=== PATIENT | female | born 1945 | race Caucasian/White ===

== ENCOUNTER → 2018-03-09 | Outpatient (CLI) | payer MEDICARE ==
[~2018-03-09] MED LIST: ADULT LOW DOSE81 MG PO; ASPIR 8181 MG PO; CIPRO500 MG PO; FISH OIL 1,001000 M2; FLAGYL500 MG PO; GLUCOPHAGE XR500 MG PO; HYDROCHLOROTH12.5 M1 PO; HYDROCHLOROTH12.5 M2 PO; LISINOPRIL20 MG PO; MUCINEX DM ER1 EACH PO; OMEGA-31000 M1 PO; OMEPRAZOLE20 M2 PO; PAXIL 20 MG TAB20 M1 PO; PAXIL 20 MG TAB20 MG PO; PRINIVIL40 MG PO; TOPROL XL50 MG PO; VITAMIN E400 UNIT PO; ZESTRIL40 MG PO
== END ==
LOC: M.ULTRA 08:38
DX: K80.20 Calculus of gallbladder without cholecystitis without obstruction (principal); K76.0 Fatty (change of) liver, not elsewhere classified; R14.0 Abdominal distension (gaseous)

== ENCOUNTER → 2018-06-30 | Day surgery (SDC) | payer MEDICARE ==
[~2018-06-30] MED LIST changes: +GLUCOTROL5 MG PO; +HYDROCHLOROTHIA25 M2 PO; +LIPITOR10 MG PO; +ULTRAM 50MG TAB50 MG PO
[2018-06-30 06:30] LABS: HEMATOCRIT 38.1 % (37.0-47.0); HEMOGLOBIN 12.5 gm/dL (12.0-15.0); MCH 28.4 pg (26.0-34.0); MCV 86.2 fL (80.0-100.0); MPV 6.8 fl. (7.2-11.1); RBC 4.42 mil/uL (4.20-5.00); RDW-CV 13.8 % (10.5-14.5); WBC 7.7 thou/uL (4.0-11.0)
[2018-06-30 06:45] LABS: ALBUMIN 3.3 g/dL (3.4-5.0); CALCIUM 8.5 mg/dL (8.5-10.1); POTASSIUM 3.7 mmol/L (3.5-5.1); TOTAL BILIRUBIN 0.4 mg/dL (<0.1-1.0)
--- NOTE | 2018-06-30 12:57 | EKG ---
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: : 1945 Requested By: Goyo Jones Order Number: [id number] Reading MD: Hamlet Wild Measurements Intervals [place] Rate: 67 P: 32 ND: 174 QRS: 5 QRSD: 97 T: 59 QT: 416 QTc: 439 Interpretive Statements Sinus rhythm Low voltage, precordial leads Nonspecific T abnormalities, anterior leads Compared to ECG 04/12/2016 13:18:38 Low QRS voltage now present T-wave abnormality still present Electronically Signed On 06-30-2018 12:57:44 ELECTRIC ARC FURNACE OPERATOR by Hamlet Wild [email or web address] <ELECTRONICALLY SIGNED> By: Hamlet Wild MD, [facility] 06/30/18 1257 0745 0745 Hamlet Wild MD, [facility] /EPI
--- NOTE | 2018-07-02 13:09 | PATH ---
[address] [address] PATHOLOGY RPT PROCEDURE Name: SOBIA ARCHER Room: [facility].R.#: [id number] Admission: 06/30/18 Date of : 49 Discharge: Report #: [id number] Path Case #: [id number] [facility] Accession Number: [id number] . 01 Material submitted: . GALLBLADDER . 01 Clinical history: . Symptomatic cholelithiasis . 02 Diagnosis: Gallbladder: - Chronic cholecystitis, cholesterolosis and cholelithiasis. (DELORES:sincere; 07/02/2018) QMS/07/02/2018 . 02 Electronically signed: . Oscar Everett MD, Pathologist NPI- [id number] . 01 Gross description: . The specimen is received in formalin, labeled "Sobia Archer, gallbladder", is a previously disrupted gallbladder measuring 6.4 x 2.7 x 2.0 cm with partially glistening, green-yellow serosa. The cystic duct region is a disrupted, therefore discrete cystic duct cannot be identified. There is an oval irregular surfaced dark brown-black calculus measuring 2.5 x 2.2 x 1.0 cm, within the fundus. The mucosa is streeter-brown and effaced towards the fundus and the wall has an average thickness of 0.1 cm. No discrete masses are identified. Scientific Photographer tissue is submitted in A1. (SWS; 06/30/2018) SHS/ . 02 Pathologist provided ICD-10: K80.10, K82.4 . 02 CPT . 434286 Specimen Comment: A courtesy copy of this report has been sent to Specimen Comment: [phone], . Specimen Comment: Report sent to / DR GARRETT Performed at: [address], [place], [place] [id number] MD Polo Prasad MD Phone: [phone] Performed at: 02 [facility] [address] [place], [place] [id number] [address] [address] PATHOLOGY RPT PROCEDURE Name: SOBIA ARCHER Room: [facility]#: [id number] Admission: 06/30/18 Date of : 49 Discharge: Report #: [id number] Path Case #: [id number] MD Oscar Everett MD Phone: [phone]
--- NOTE | 2018-07-09 00:52 | OP ---
[address] [address] OPERATIVE REPORT Name: PRIMO ARCHER Room: [facility]#: [id number] Admission: 06/30/18 Attend Phys: Goyo Jones DO Discharge: Date of : 49 Report #: [id number] THIS REPORT FOR: //name// CC: Goyo Agee DATE OF SERVICE: 06/30/2018 REFERRING PHYSICIAN: Emilee Agee MD PREOPERATIVE DIAGNOSIS: Symptomatic cholelithiasis. POSTOPERATIVE DIAGNOSES: Symptomatic cholelithiasis plus intra-abdominal adhesions. PROCEDURE: Da Angelia robotic-assisted laparoscopic multiport cholecystectomy and lysis of adhesions lasting greater than 1 hour. SURGEON: Goyo Jones DO CHILD DAYCARE WORKER: Tj Rausch DO, PGY3, resident. SECOND AVIATION PROGRAM MANAGER: Betty Jenkins DO, PGY1, resident. ANESTHESIA: General endotracheal. ESTIMATED BLOOD LOSS: Less than 30 mL. COMPLICATIONS: None. DESCRIPTION OF PROCEDURE: After obtaining proper consents and discussing risks and complications with the patient, she was taken to the operating room, laid on the supine position, administered general anesthesia. She was then prepped and draped in the usual fashion. A timeout was performed. We confirmed the appropriate patient and procedure. Preoperative antibiotics were given. Once the patient was prepped and draped, a supraumbilical skin incision with #11 scalpel blade was carried down through the skin and subcutaneous tissue using electrocautery for hemostasis. Once the fascia was encountered, it was incised along the midline, grasped and elevated with Carissa clamps. The peritoneum was then bluntly opened using a hemostat. A finger was placed inside the peritoneal cavity and there did appear to be some josiah-incisional adhesions; however, it felt like we could place the trocar intraperitoneally without any difficulty. I then placed the blunt trocar and inserted the camera after insufflation was begun. It appeared that the trocar was underneath some adhesions and we were actually looking at the undersurface of the omentum [place] [address] OPERATIVE REPORT Name: PRIMO ARCHER Room: [facility].#: [id number] Admission: 06/30/18 Attend Phys: Goyo Jones DO Discharge: Date of : 49 Report #: [id number] numerous different attempts of placement of the supraumbilical trocar, we were finally able to get over to the right side and over top of the omentum and then we were able to visualize the gallbladder and liver. There did appear to be some adhesions along the midline and left upper quadrant. We elected to place 2 more trocars in the right upper quadrant and then inserted the camera through one of the far lateral right ports and then used electrocautery and blunt dissection to take down the adhesions along the midline and left upper quadrant to allow us to place a fourth trocar in the left upper quadrant to proceed with the Da Angelia robotic cholecystectomy. This dissection of adhesions took approximately 1 hour. Once this was done, we were able to finally place the fourth trocar in the left upper quadrant and then we docked the da Angelia robot. Once the da Angelia robot was docked, we inserted a hook cautery in the left upper quadrant and 2 Cadiere graspers in the right upper quadrant. I then broke scrub and went on console. Once on the console, I was able to elevate the gallbladder and identify Erica pouch which was also grasped and elevated. The hepatoduodenal ligament was then stripped down and we used Firefly technology and immunofluorescence to identify the cystic duct. I could visualize the cystic duct coursing directly into the gallbladder. I also could identify the cystic artery and obtained a critical view of safety. Once the critical view of safety was obtained, I then dissected the cystic duct and cystic artery free as they coursed directly into the gallbladder. They were then clipped proximally and distally and then divided between clips. The gallbladder was then removed from the liver bed using electrocautery. We did copiously irrigate the area afterwards and assured hemostasis in the liver bed and also used Firefly again to assure there was no biliary leak. Once this was done, I then elevated the gallbladder. My sales assistants and salespersons undocked the third arm of the da Angelia robot and grasped the gallbladder using an alligator grasper. I then rescrubbed and went back to the patient's bedside. The da Angelia robot was undocked. The camera was moved to port #2 in the right upper quadrant and an Endopouch was placed through the supraumbilical incision. The gallbladder was placed into an Endopouch. The insufflation was then stopped. All air was released. Trocars were removed under direct vision. The gallbladder was removed through the supraumbilical incision in the Endopouch. We then closed the umbilical fascia using the 2 previously placed 0 Vicryl sutures plus 2 additional 0 Vicryl sutures. Skin incisions were all injected with 0.5% Marcaine without epinephrine and closed using 4-0 Monocryl subcuticular stitches. Mastisol, Steri-Strips, sterile OpSite and pressure dressings were placed. The patient tolerated the procedure well, was transported to recovery room in stable condition. <ELECTRONICALLY SIGNED> By: Goyo Jones DO 07/09/18 0052 [id number] 1158Alata Jones DO /kinsey
== END | disposition home or self-care (01) ==
LOC: M.SUR 06-22 06:30
PROVIDERS: Surgery
DX: K80.10 Calculus of gallbladder with chronic cholecystitis without obstruction (principal); K66.0 Peritoneal adhesions (postprocedural) (postinfection); Z79.82 Long term (current) use of aspirin; Z79.899 Other long term (current) drug therapy; Z98.890 Other specified postprocedural states; Z88.8 Allergy status to other drugs, medicaments and biological substances

== ENCOUNTER → 2018-10-06 | Outpatient (CLI) | payer MEDICARE | LOC: M.RAD 11:49 | DX: S29.019A Strain of muscle and tendon of unspecified wall of thorax, initial encounter (principal); M25.78 Osteophyte, vertebrae; X58.XXXA Exposure to other specified factors, initial encounter; Y93.89 Activity, other specified; Y92.89 Other specified places as the place of occurrence of the external cause; Y99.8 Other external cause status ==

== ENCOUNTER 2019-04-30 11:03 | Observation (INO) | payer MEDICARE ==
[~2019-04-30] VITALS: Ht 165.1 cm; Wt 98.9 kg
[2019-04-30 11:04] VITALS: BP 144/100
[2019-04-30] MEDS ORDERED: FISH OIL 1,0001 EAC9 PO (11:28)
[2019-04-30] MEDS ORDERED: CELEBREX50 MG PO (11:28)
[2019-04-30 14:53] LABS: ABSOLUTE BASOPHILS 0.1 thou/uL (0.0-0.2); ABSOLUTE EOSINOPHILS 0.1 thou/uL (0.0-0.7); ABSOLUTE LYMPHOCYTES 1.3 thou/uL (0.8-5.3); ABSOLUTE MONOCYTES 0.5 thou/uL (0.0-1.2); ABSOLUTE NEUTROPHILS 7.4 thou/uL (1.6-8.1); BASOPHILS 0.6 %; EOSINOPHILS 1.2 %; HEMATOCRIT 26.7 % (37.0-47.0); HEMOGLOBIN 8.5 gm/dL (12.0-15.0); LYMPHOCYTES 13.6 %; MCH 22.6 pg (26.0-34.0); MCV 70.6 fL (80.0-100.0); MONOCYTES 5.7 %; MPV 6.1 fl. (7.2-11.1); NUCLEATED RBCS 0 /100WBC; PLATELET COUNT* 323 thou/uL (150-400); POLYS 78.9 %; RBC 3.78 mil/uL (4.20-5.00); RDW-CV 16.9 % (10.5-14.5); WBC 9.4 thou/uL (4.0-11.0)
[2019-04-30 15:05] LABS: CALCIUM 8.1 mg/dL (8.5-10.1)
[2019-04-30 15:19] LABS: ALBUMIN 3.1 g/dL (3.4-5.0); TOTAL BILIRUBIN 0.2 mg/dL (<0.1-1.0); TOTAL PROTEIN 6.5 g/dL (6.4-8.2)
--- NOTE | 2019-04-30 15:33 | NUR ---
ESTRELLITA NOTIFIED UPON PT RETURN FROM CT. PT CONNECTED TO BP AND PULSE OX MONITOR SHE WAS PRIOR TO CT
[2019-04-30 15:45] LABS: PLATELET ESTIMATE ADEQUATE
[2019-04-30 15:46] LABS: ANISOCYTOSIS 1+; HYPOCHROMASIA 2+; MICROCYTES 1+
[2019-04-30 18:44] VITALS: BP 131/44
--- NOTE | 2019-05-01 05:08 | NUR ---
ASSUMED CARE OF PT 04/30/19 AT APPROX 1930, PT A&OX4, PT O2 SAT 88-92% ON ROOM AIR - PLACED ON 2L O2 NC, O2 SAT95%, PAIN MED REQUESTED 0450 AM - PHYSICIAN NOTIFIED, WILL CONTINUE TO MONITOR.
[2019-05-01 05:14] LABS: URINE BILIRUBIN NEGATIVE (Negative); URINE BLOOD NEGATIVE (Negative); URINE CLARITY CLEAR; URINE COLOR YELLOW; URINE GLUCOSE-RANDOM NEGATIVE (Negative); URINE KETONES NEGATIVE (Negative); URINE LEUKOCYTES NEGATIVE (Negative); URINE NITRITE NEGATIVE (Negative); URINE PROTEIN NEGATIVE (Negative); URINE SPECIFIC GRAVITY >= 1.030 (1.005-1.030); URINE UROBILINOGEN 0.2 E.U./dl (0.2-1.0)
[2019-05-01 07:40] VITALS: BP 116/54
[2019-05-01 12:22] VITALS: BP 131/44
--- NOTE | 2019-05-01 16:08 | NUR ---
ASSUMED CARE OF PATIENT AT APPROX 0730. ALERT AND ORIENTED X4. ASSESSMENT COMPLETED AND CHARTED. VSS ON ROOM AIR. PAIN MANAGED WITH IV FENTANYL. PATIENT CLEARED FOR DISCHARGE BY HOSPITALIST AND ORTHO. PATIENT DISCHARGED WITH ALL PERSONAL BELONGINGS, PRESCRIPTIONS AND DISCHARGE INFORMATION.
== END 2019-05-01 16:07 | disposition home or self-care (01) ==
LOC: M.ERS 11:03 → M.TBA-ER 16:26 → M.ORTHSURG 18:50
PROVIDERS: Internal Medicine; Physician Assistant; ADMIT Internal Medicine
DX: M16.12 Unilateral primary osteoarthritis, left hip (principal); I10 Essential (primary) hypertension; E11.9 Type 2 diabetes mellitus without complications; Z90.710 Acquired absence of both cervix and uterus; Z98.890 Other specified postprocedural states

== ENCOUNTER → 2019-10-25 | Outpatient (CLI) | payer MEDICARE ==
[~2019-10-25] MED LIST changes: +CELEBREX50 MG PO; +FISH OIL 1,0001 EAC9 PO
[2019-10-25 07:35] LABS: CREATININE 0.9 mg/dL (0.6-1.3)
== END ==
LOC: M.LAB 10-06 09:34 → M.CT 08:00 → M.LAB 08:00
PROVIDERS: ATTEND Internal Medicine
DX: K42.9 Umbilical hernia without obstruction or gangrene (principal); D50.9 Iron deficiency anemia, unspecified; K43.9 Ventral hernia without obstruction or gangrene; R10.84 Generalized abdominal pain; K57.30 Diverticulosis of large intestine without perforation or abscess without bleeding; K76.0 Fatty (change of) liver, not elsewhere classified

== ENCOUNTER → 2019-12-02 | Outpatient (CLI) | payer MEDICARE | LOC: M.LAB 07:48 | PROVIDERS: ATTEND Surgery | DX: Z01.818 Encounter for other preprocedural examination (principal); Z11.59 Encounter for screening for other viral diseases; K43.2 Incisional hernia without obstruction or gangrene ==